=== PATIENT | female | born 1940 | race Caucasian/White ===

== ENCOUNTER 2017-01-31 10:22 | Emergency (ER) | payer MEDICARE, OTHER ==
--- NOTE | 2017-01-31 11:07 | EDM.PDOC ---
ED HPI GENERAL MEDICAL PROBLEM - General Chief Complaint: General Stated Complaint: FALL,LIGHTHEADED Time Seen by Provider: 01/31/17 11:00 Source of Information: Reports: Patient, Family History Limitations: Reports: No limitations - History of Present Illness INITIAL COMMENTS - FREE TEXT/NARRATIVE: pt has a history of a irregular heart rhythm. She is on coumadin and that was last checkd the end of dec. Onset: sudden Duration: Hour(s): Location: Reports: other (pt had an episode of marked weakness. ) Associated Symptoms: Reports: syncope, other (pt got upp and was slightly dizzy. She sat on the tolet and when she went to get up she felt weak all over and she passd out briefly. ) Headache Pain Score (Numeric/FACES): 1 - Related Data Allergies Allergy/AdvReac Type Severity Reaction Status Date / Time glucosamine Allergy Hives Verified 11/22/13 12:15 Sulfa (Sulfonamide Allergy Hives Verified 11/22/13 12:15 Antibiotics) terbinafine HCl Allergy Hives Verified 11/22/13 12:15 [From Lamisil] nickel Allergy Cannot Uncoded 10/22/15 09:32 Remember Home Meds: Home Meds Albuterol [Ventolin HFA] 2 puff INH Q4H PRN 11/22/13 [History] Aspirin [Ecotrin] 81 mg PO DAILY 11/22/13 [History] Estradiol [Estrace Vaginal] 2 gm VAG .MW 11/22/13 [History] Fish Oil/Todd-3 Fatty Acids [Fish Oil] 1 each PO DAILY 11/22/13 [History] Fluticasone Propionate [Flonase] 16 gm NS DAILY 11/22/13 [History] LORazepam [Ativan] 0.5 mg PO TID PRN 11/22/13 [History] Metoprolol Tartrate 25 mg PO BID 11/22/13 [History] Montelukast [Singulair] 10 mg PO BEDTIME 11/22/13 [History] Multivitamin with Minerals [Multiple Vitamin] 1 tab PO DAILY 11/22/13 [History] Omeprazole 20 mg PO DAILY 11/22/13 [History] Simvastatin [Zocor] 20 mg PO BEDTIME 11/22/13 [History] Solifenacin [Vesicare] 10 mg PO DAILY 11/22/13 [History] Warfarin Sliding Scale [Coumadin Sliding Scale] 5 mg PO .MWF 11/22/13 [History] traMADol [Ultram] 50 mg PO Q6H PRN 11/22/13 [History] ALPRAZolam [Xanax] 0.25 mg PO BEDTIME PRN 10/22/15 [History] Albuterol Sulfate [Proair Hfa] 2 puff PO Q4H PRN 10/22/15 [History] Citalopram Hydrobromide [Celexa] 10 mg PO DAILY 10/22/15 [History] Donepezil [Aricept] 10 mg PO BEDTIME 10/22/15 [History] Warfarin Sliding Scale [Coumadin Sliding Scale] 2.5 mg PO .STTS 10/22/15 [ History] Alendronate [Fosamax] 70 mg PO WEEKLY 01/31/17 [History] Cetirizine [ZyrTEC] 5 mg PO DAILY 01/31/17 [History] Diltiazem HCl [Diltiazem 12Hr ER] 60 mg PO BID 01/31/17 [History] Fluticasone/Salmeterol [Advair 250-50 Diskus] 2 puff INH Q4H PRN 01/31/17 [ History] Montelukast [Singulair] 10 mg PO DAILY 01/31/17 [History] Triamcinolone Acetonide [Kenalog 0.1% Crm] 1 appful TOP ASDIRECTED 01/31/17 [ History] Past Medical History HEENT History: Reports: Hard of hearing Cardiovascular History: Reports: Afib, High cholesterol, Hypertension Respiratory History: Reports: Asthma, Bronchitis, recurrent Gastrointestinal History: Reports: GERD 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: Musculoskeletal History: Reports: Fracture, Other (see below) Other Musculoskeletal History: ankle broken twice Neurological History: Reports: CVA Psychiatric History: Reports: Anxiety, Depression Endocrine/Metabolic History: Reports: Diabetes, type II, Obesity/BMI 30+ - Infectious Disease History Infectious Disease History: Reports: Chicken pox - Past Surgical History HEENT Surgical History: Reports: Cataract surgery Respiratory Surgical History: Reports: None GI Surgical History: Reports: Colonoscopy Female Surgical History: Reports: section, Other (see below) Other Female Surgeries/Procedures: bladder repair Endocrine Surgical History: Reports: None Neurological Surgical History: Reports: None Musculoskeletal Surgical History: Reports: Arthroscopic knee Social & Family History - Tobacco Use Smoking Status *Q: Never Smoker Second Hand Smoke Exposure: No - Caffeine Use Caffeine Use: Reports: Coffee - Alcohol Use Days Per Week of Alcohol Use: 0 - Recreational Drug Use Recreational Drug Use: No ED ROS GENERAL - Review of Systems Review Of Systems: See Below Constitutional: Reports: no symptoms HEENT: Reports: No symptoms Respiratory: Reports: No Symptoms Cardiovascular: Reports: Syncope Endocrine: Reports: no symptoms GI/Abdominal: Reports: No symptoms : Reports: no symptoms Musculoskeletal: Reports: no symptoms Skin: Reports: no symptoms ED EXAM, GENERAL - Physical Exam Exam: See Below Free Text/Narrative:: pt arrived after she had a syncopl episode early Tuesday am and she ended up falling to the floor. Exam Limited By: No limitations General Appearance: alert, no apparent distress, anxious Ears: normal TMs Nose: normal inspection Throat/Mouth: Normal inspection Head: other ( slight bruisin over the rt eye. ) Neck: normal inspection Respiratory/Chest: no respiratory distress Cardiovascular: irregularly irregular, other ( rates were in the 60,s and seventys. ) GI/Abdominal: soft, non tender Rectal (Female) Exam: Deferred Back Exam: normal inspection Extremities: normal inspection Neurological: alert, oriented, normal cognition Psychiatric: normal affect Course - Vital Signs Last Recorded V/S: Last Vital Signs Temp 35.9 C 01/31/17 10:55 Pulse 54 L 01/31/17 11:15 Resp 16 01/31/17 11:15 BP 105/64 01/31/17 11:15 Pulse Ox 98 01/31/17 11:15 Orthostatic Blood Pressure [ 147/64 Standing] Orthostatic Blood Pressure [ 128/86 Sitting] Orthostatic Blood Pressure [ 133/76 Supine] - Orders/Labs/Meds Orders: Active Orders 24 hr Category Date Time Status Cardiac Monitoring [RC] .As Directed Care 01/31/17 11:00 Active Orthostatic Vital Signs [RC] ASDIRECTED Care 01/31/17 10:44 Active Labs: Laboratory Tests 01/31/17 01/31/17 01/31/17 Range/Units 10:55 10:55 10:55 WBC 6.1 (4.5-11.0) K/uL RBC 5.08 (3.30-5.50) M/uL Hgb 15.2 H (12.0-15.0) g/dL Hct 46.6 (36.0-48.0) % MCV 92 (80-98) fL MCH 30 (27-31) pg MCHC 33 (32-36) % Plt Count 286 (150-400) K/uL Neut % (Auto) 51 (36-66) % Lymph % (Auto) 31 (24-44) % [place] % (Auto) 12 H (2-6) % Eos % (Auto) 5 H (2-4) % Baso % (Auto) 1 (0-1) % PT 24.1 H (9.5-12.0) sec INR 2.22 H (0.80-1.20) Sodium 138 L (140-148) mmol/L Potassium 5.3 H (3.6-5.2) mmol/L Chloride 102 (100-108) mmol/L Carbon Dioxide 29 (21-32) mmol/L Anion Gap 12.3 (5.0-14.0) mmol/L BUN 16 (7-18) mg/dL Creatinine 0.9 (0.6-1.0) mg/dL Est Cr Clr Drug Dosing 38.79 mL/min Estimated GFR (MDRD) > 60 (>60) Glucose 128 H (74-106) mg/dL Calcium 9.5 (8.5-10.1) mg/dL Total Bilirubin 0.6 (0.2-1.0) mg/dL AST 23 (15-37) U/L ALT 32 (12-78) U/L Alkaline Phosphatase 76 (46-116) U/L Total Protein 7.2 (6.4-8.2) g/dL Albumin 3.8 (3.4-5.0) g/dL Globulin 3.4 (2.3-3.5) g/dL Albumin/Globulin Ratio 1.1 L (1.2-2.2) Urine Color Urine Appearance Urine pH (4.5-8.0) Ur Specific [place] (1.008-1.030) Urine Protein (NEGATIVE) mg/dL Urine Glucose (UA) (NEGATIVE) mg/dL Urine Ketones (NEGATIVE) mg/dL Urine Occult Blood (NEGATIVE) Urine Nitrite (NEGATIVE) Urine Bilirubin (NEGATIVE) Urine Urobilinogen (NORMAL) mg/dL Ur Leukocyte Esterase (NEGATIVE) Urine RBC (0-5) Urine WBC (0-5) Ur Epithelial Cells Amorphous Sediment Urine Bacteria Urine Mucus 01/31/17 Range/Units 12:40 WBC (4.5-11.0) K/uL RBC (3.30-5.50) M/uL Hgb (12.0-15.0) g/dL Hct (36.0-48.0) % MCV (80-98) fL MCH (27-31) pg MCHC (32-36) % Plt Count (150-400) K/uL Neut % (Auto) (36-66) % Lymph % (Auto) (24-44) % [place] % (Auto) (2-6) % Eos % (Auto) (2-4) % Baso % (Auto) (0-1) % PT (9.5-12.0) sec INR (0.80-1.20) Sodium (140-148) mmol/L Potassium (3.6-5.2) mmol/L Chloride (100-108) mmol/L Carbon Dioxide (21-32) mmol/L Anion Gap (5.0-14.0) mmol/L BUN (7-18) mg/dL Creatinine (0.6-1.0) mg/dL Est Cr Clr Drug Dosing mL/min Estimated GFR (MDRD) (>60) Glucose (74-106) mg/dL Calcium (8.5-10.1) mg/dL Total Bilirubin (0.2-1.0) mg/dL AST (15-37) U/L ALT (12-78) U/L Alkaline Phosphatase (46-116) U/L Total Protein (6.4-8.2) g/dL Albumin (3.4-5.0) g/dL Globulin (2.3-3.5) g/dL Albumin/Globulin Ratio (1.2-2.2) Urine Color Yellow Urine Appearance Slightly cloudy Urine pH 7.0 (4.5-8.0) Ur Specific [place] 1.010 (1.008-1.030) Urine Protein Negative (NEGATIVE) mg/dL Urine Glucose (UA) Normal (NEGATIVE) mg/dL Urine Ketones Negative (NEGATIVE) mg/dL Urine Occult Blood Negative (NEGATIVE) Urine Nitrite Negative (NEGATIVE) Urine Bilirubin Negative (NEGATIVE) Urine Urobilinogen Normal (NORMAL) mg/dL Ur Leukocyte Esterase Negative (NEGATIVE) Urine RBC Not seen (0-5) Urine WBC Not seen (0-5) Ur Epithelial Cells Moderate Amorphous Sediment Moderate Urine Bacteria Rare Urine Mucus Not seen - Re-Assessments/Exams Free Text/Narrative Re-Assessment/Exam: 01/31/17 12:56 pt had an ekg which did not show acute fings, She is in atrial fib which is chronic for her. Her lab work looks good. She had a cat scan of the head because she s hit her head and she is on coumadin. Her bp was on the low side. Departure - Departure Time of Disposition: 12:58 Disposition: Home, Self-Care 01 Condition: fair Clinical Impression: Postural hypotension, Atrial fibrillation, chronic Forms: ED Department Discharge Care Plan Goals: decrease metoprol to 25 mg daily instead of twice daily, Try to get up slower and sit at the edge of the bed before standing up. Appt with Melanie Ran in 4-5 days to recheck bp and see if she has hd any more near Syncope. - My Orders Last 24 Hours: My Active Orders 01/31/17 10:44 Orthostatic Vital Signs [RC] ASDIRECTED 01/31/17 11:00 Cardiac Monitoring [RC] .As Directed - Assessment/Plan Last 24 Hours: My Active Orders 01/31/17 10:44 Orthostatic Vital Signs [RC] ASDIRECTED 01/31/17 11:00 Cardiac Monitoring [RC] .As Directed
[2017-01-31 11:32] VITALS: BP 105/64
--- NOTE | 2017-01-31 11:49 | CT ---
Head wo Cont INDICATION: Patient fell to floor after passing out. Total DLP 779. COMPARISON: CT head 05/06/2015. FINDINGS: No acute intracranial hemorrhage, mass, or edema. Generalized cerebral and cerebellar volu me loss. Mild low attenuation in the periventricular and subcortical deep white matter is nonspecifi c, but most compatible with chronic small-vessel ischemic changes. Stable chronic white matter infar ct posterior left frontal lobe. Fluid and mucosal thickening in bilateral maxillary sinuses. Remaind er unremarkable. IMPRESSION: No acute intracranial abnormality. Sinusitis.
== END 2017-01-31 13:47 | disposition home or self-care (01) ==
LOC: JP.ED 10:22
DX: I95.1 Orthostatic hypotension (principal); I48.2 Chronic atrial fibrillation; I10 Essential (primary) hypertension; E78.00 Pure hypercholesterolemia, unspecified; J45.909 Unspecified asthma, uncomplicated; K21.9 Gastro-esophageal reflux disease without esophagitis; E11.9 Type 2 diabetes mellitus without complications; F41.9 Anxiety disorder, unspecified; F32.9 Major depressive disorder, single episode, unspecified; E66.9 Obesity, unspecified; Z68.32 Body mass index [BMI] 32.0-32.9, adult; Z88.2 Allergy status to sulfonamides; Z88.8 Allergy status to other drugs, medicaments and biological substances; Z91.048 Other nonmedicinal substance allergy status; Z79.82 Long term (current) use of aspirin; Z79.01 Long term (current) use of anticoagulants; Z79.899 Other long term (current) drug therapy; Z98.49 Cataract extraction status, unspecified eye; Z98.890 Other specified postprocedural states
CPT/HCPCS: 36415; 70450; 70450-26; 80053; 81001; 85025; 85610; 93010; 99283; 99284-25

== ENCOUNTER → 2019-03-21 | Outpatient (CLI) | payer MEDICARE, OTHER ==
--- NOTE | 2019-03-22 09:53 | CRLMY ---
INDICATION: Asymptomatic 78 year Female, Bilateral Screening Mammogram been obtained using full-field digital technique. These mammographic images were interpreted with the benefit of computer-aided detection. COMPARISON FILM: 12/01/17, 11/11/16, 10/28/15, 05/03/14. FINDINGS: The breast tissue is almost entirely fat. There are no masses or calcifications that are suspicious for malignancy. IMPRESSION: There is no radiographic evidence for malignancy. ASSESSMENT: BI-RADS Category 2: Benign RECOMMENDATION: Routine screening mammogram in 1 year. A lay language report of this examination will be provided to the patient. Breast Tomosynthesis was used in this interpretation. [email or web address] Dictated by: Mina Dumont MD @ 03/22/2019 09:52:43 (Electronically Signed)
== END ==
LOC: JP.MAM 14:02
PROVIDERS: ATTEND Physician Assistant
DX: Z12.31 Encounter for screening mammogram for malignant neoplasm of breast (principal)
CPT/HCPCS: 77063; 77067

== ENCOUNTER 2021-06-13 13:30 | Emergency (ER) | payer MEDICARE, OTHER ==
--- NOTE | 2021-06-13 14:14 | EDM.PDOC ---
ED HPI GENERAL MEDICAL PROBLEM - General Chief Complaint: Lower Extremity Injury/Pain Stated Complaint: R HIP PAIN Time Seen by Provider: 06/13/21 14:13 Source of Information: Reports: Patient, RN History Limitations: Reports: Other (Hard of hearing) - History of Present Illness INITIAL COMMENTS - FREE TEXT/NARRATIVE: Sera is a very active 80 year old female whom was brought to the ER by her after a fall this morning around 10 am. Sera was in the garage getting corn when she lost her balance and fell striking her head and landing on her right hip resulting in severe right hip pain. Patient is on Coumadin. Patient has significant difficulty ambulating due to pain. Sera has not pain with movement of bilateral arm, wrists or shoulders. Sera is diabetic but stopped Metformin due to severe Gi distress, hoping to get a different mediation to help control blood sugars. She has been watching her diet closely. - Related Data Allergies Allergy/AdvReac Type Severity Reaction Status Date / Time glucosamine Allergy Hives Verified 06/13/21 14:56 Sulfa (Sulfonamide Allergy Hives Verified 06/13/21 14:56 Antibiotics) terbinafine HCl Allergy Hives Verified 06/13/21 14:56 [From Lamisil] nickel Allergy Cannot Uncoded 06/13/21 14:56 Remember Home Meds: Home Meds Albuterol [Ventolin HFA] 2 puff INH Q4H PRN 11/22/13 [History] Aspirin [Ecotrin] 81 mg PO DAILY 11/22/13 [History] Fish Oil/Burnside-3 Fatty Acids [Fish Oil] 1 each PO DAILY 11/22/13 [History] LORazepam [Ativan] 0.5 mg PO TID PRN 11/22/13 [History] Metoprolol Tartrate 25 mg PO BID 11/22/13 [History] Montelukast [Singulair] 10 mg PO BEDTIME 11/22/13 [History] Simvastatin [Zocor] 20 mg PO BEDTIME 11/22/13 [History] Warfarin Sliding Scale [Coumadin Sliding Scale] 5 mg PO .MWF 11/22/13 [History] ALPRAZolam [Xanax] 0.25 mg PO BEDTIME PRN 10/22/15 [History] Albuterol Sulfate [Proair Hfa] 2 puff PO Q4H PRN 10/22/15 [History] Citalopram Hydrobromide [Celexa] 10 mg PO DAILY 10/22/15 [History] Donepezil [Aricept] 10 mg PO BEDTIME 10/22/15 [History] Warfarin Sliding Scale [Coumadin Sliding Scale] 2.5 mg PO .STTS 10/22/15 [History] Alendronate [Fosamax] 70 mg PO WEEKLY 01/31/17 [History] Cetirizine [ZyrTEC] 5 mg PO DAILY 01/31/17 [History] Fluticasone Propion/Salmeterol [Advair 250-50 Diskus] 2 puff INH Q4H PRN 01/31/17 [History] Triamcinolone Acetonide [Kenalog 0.1% Crm] 1 appful TOP ASDIRECTED 01/31/17 [History] dilTIAZem HCL [Diltiazem 12Hr ER] 60 mg PO BID 01/31/17 [History] Acetaminophen/HYDROcodone [[place]burn 325-5 MG] 1 tab PO Q6H PRN 2 Days #10 tab 06/13/21 [Rx] Past Medical History HEENT History: Reports: Hard of Hearing Cardiovascular History: Reports: Afib, High Cholesterol, Hypertension Respiratory History: Reports: Asthma, Bronchitis, Recurrent Gastrointestinal History: Reports: 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: Musculoskeletal History: Reports: Fracture, Other (See Below) Other Musculoskeletal History: ankle broken twice Neurological History: Reports: CVA Psychiatric History: Reports: Anxiety, Depression Endocrine/Metabolic History: Reports: Diabetes, Type II, Obesity/BMI 30+ - Infectious Disease History Infectious Disease History: Reports: Chicken Pox - Past Surgical History HEENT Surgical History: Reports: Cataract Surgery Female Surgical History: Reports: Section, Other (See Below) Musculoskeletal Surgical History: Reports: Arthroscopic Knee Social & Family History - Caffeine Use Caffeine Use: Reports: Coffee Review of Systems - Review of Systems Review Of Systems: Comprehensive ROS is negative, except as noted in HPI. ED EXAM, GENERAL - Physical Exam Exam: See Below Exam Limited By: Other (Hard of hearing) General Appearance: Alert, WD/WN, Moderate Distress (due to hip pain) Eye Exam: Bilateral Eye: Normal Inspection Ears: Normal External Exam Nose: Normal Inspection Throat/Mouth: Normal Inspection, Normal Voice, No Airway Compromise Head: Other (psoterior contusion hematoma noted) Neck: Normal Inspection, Non-Tender, Limited Range of Motion Respiratory/Chest: No Respiratory Distress, Lungs Clear, Normal Breath Sounds Cardiovascular: Normal Peripheral Pulses GI/Abdominal: Normal Bowel Sounds, Soft (Female) Exam: Deferred Rectal (Female) Exam: Deferred Back Exam: Normal Inspection Extremities: Leg Pain (Right hip posterior buttocks pain) Neurological: Alert, Oriented, CN II-XII Intact, Normal Cognition, Abnormal Gait Psychiatric: Normal Affect, Normal Mood Course - Vital Signs Last Recorded V/S: Last Vital Signs Temp 36.3 C 06/13/21 14:24 Pulse 79 06/13/21 15:41 Resp 18 06/13/21 14:24 BP 139/66 06/13/21 15:41 Pulse Ox 96 06/13/21 15:41 - Orders/Labs/Meds Orders: Active Orders 24 hr Category Date Time Status Ambulate [RC] PER UNIT ROUTINE Care 06/13/21 16:05 Active Peripheral IV Care [RC] . DIRECTED Care 06/13/21 14:30 Active Hip Min 2V or 3V w Pelvis Rt [CR] Stat Exams 06/13/21 14:29 Taken Sodium Chloride 0.9% [Saline Flush] Med 06/13/21 14:29 Active 10 ml FLUSH ASDIRECTED PRN Peripheral IV Insertion Adult [OM.PC] Urgent Oth 06/13/21 14:29 Ordered Medication Orders Sodium Chloride (Sodium Chloride 0.9% 10 Ml Syringe) 10 ml FLUSH ASDIRECTED PRN PRN Reason: Keep Vein Open Last Admin: 06/13/21 14:44 Dose: 10 ml Documented by: MEHDI Labs: Laboratory Tests 06/13/21 06/13/21 06/13/21 Range/Units 14:28 14:28 14:28 WBC 5.9 (4.5-11.0) K/uL RBC 3.77 (3.30-5.50) M/uL Hgb 10.6 L D (12.0-15.0) g/dL Hct 33.8 L (36.0-48.0) % MCV 90 (80-98) fL MCH 28 (27-31) pg MCHC 31 L (32-36) % Plt Count 347 (150-400) K/uL Neut % (Auto) 65.4 (36-66) % Lymph % (Auto) 20.4 L (24-44) % [place] % (Auto) 9.5 H (2-6) % Eos % (Auto) 4.2 H (2-4) % Baso % (Auto) 0.5 (0-1) % PT 28.6 H (9.5-12.0) sec INR 2.67 H (0.80-1.20) Sodium 137 L (140-148) mmol/L Potassium 4.4 (3.6-5.2) mmol/L Chloride 101 (100-108) mmol/L Carbon Dioxide 28 (21-32) mmol/L Anion Gap 12.4 (5.0-14.0) mmol/L BUN 11 (7-18) mg/dL Creatinine 0.8 (0.6-1.0) mg/dL Est Cr Clr Drug Dosing 40.96 mL/min Estimated GFR (MDRD) > 60 (>60) Glucose 137 H (74-106) mg/dL Calcium 9.1 (8.5-10.1) mg/dL Total Bilirubin 0.3 (0.2-1.0) mg/dL AST 24 (15-37) U/L ALT 24 (12-78) U/L Alkaline Phosphatase 58 (46-116) U/L Total Protein 6.2 L (6.4-8.2) g/dL Albumin 3.3 L (3.4-5.0) g/dL Globulin 2.9 (2.3-3.5) g/dL Albumin/Globulin Ratio 1.1 L (1.2-2.2) Meds: Medications Generic Name Dose Route Start Last Admin Trade Name Freq PRN Reason Stop Dose Admin Sodium Chloride 10 ml 06/13/21 14:29 06/13/21 14:44 Sodium Chloride 0.9% 10 Ml Syringe FLUSH 10 ml ASDIRECTED PRN Administration Keep Vein Open Discontinued Medications Generic Name Dose Route Start Last Admin Trade Name Freq PRN Reason Stop Dose Admin Hydrocodone Bitart/Acetaminophen 1 tab 06/13/21 16:04 06/13/21 16:28 Acetaminophen/Hydrocodone 325-5 Mg Tab PO 06/13/21 16:05 1 tab ONETIME ONE Administration Fentanyl 50 mcg 06/13/21 14:28 06/13/21 14:43 Fentanyl 100 Mcg/2 Ml Sdv IVPUSH 06/13/21 14:29 50 mcg ONETIME ONE Administration Metoclopramide HCl 5 mg 06/13/21 14:28 06/13/21 14:43 Metoclopramide 10 Mg/2 Ml Sdv IV 06/13/21 14:29 5 mg ONETIME ONE Administration - Re-Assessments/Exams Free Text/Narrative Re-Assessment/Exam: Right hip and pelvis x ray negative per my reading and ER MD. CT head and cervical spine without acute concerning findings. Blood test normal with therapeutic Coumadin level. Pain pill given to patient and allowed ambulation with more stable walker, which went will and would like for home use to prevent injury at this time. 06/13/21 17:18 Departure - Departure Time of Disposition: 17:20 Disposition: Home, Self-Care 01 Clinical Impression: Fall, Hip pain, Head injury, Compression fracture of thoracic vertebra, Cervical arthritis - Discharge Information Prescriptions: Acetaminophen/HYDROcodone [[place] 325-5 MG] 1 tab PO Q6H PRN 2 Days #10 tab PRN Reason: Pain (Severe 7-10) Referrals: Judie Tong PA [Primary Care Provider] - Forms: ED Department Discharge Additional Instructions: 1. Continue Ice 15-20 mintues as needed for pain on head or buttocks. 2. CT Head no head bleed noted. Continued Coumadin as directed. 3. Tylenol 500-650mg every 6 hours for mild to moderate pain Max 3000mg recommended per 24 hours. 4. Add [place] (5/325) 1/2 to 1 tablet every 6 hours as needed for moderate to severe pain. 5. Use walker for balance to prevent further injury or repeat fall due to hip pain. 6. Call clinic on Tuesday for recheck this week to ensure right hip pain is improving. Sepsis Event Note (ED) - Focused Exam Vital Signs: Vital Signs Temp Pulse Resp BP Pulse Ox 06/13/21 15:41 79 139/66 96 06/13/21 14:24 36.3 C 75 18 140/72 99 06/13/21 14:07 36.3 C 75 18 140/72 99 - My Orders Last 24 Hours: My Active Orders 06/13/21 14:29 Hip Min 2V or 3V w Pelvis Rt [CR] Stat Sodium Chloride 0.9% [Saline Flush] 10 ml FLUSH ASDIRECTED PRN Peripheral IV Insertion Adult [OM.PC] Urgent 06/13/21 14:30 Peripheral IV Care [RC] . DIRECTED 06/13/21 16:05 Ambulate [RC] PER UNIT ROUTINE - Assessment/Plan Last 24 Hours: My Active Orders 06/13/21 14:29 Hip Min 2V or 3V w Pelvis Rt [CR] Stat Sodium Chloride 0.9% [Saline Flush] 10 ml FLUSH ASDIRECTED PRN Peripheral IV Insertion Adult [OM.PC] Urgent 06/13/21 14:30 Peripheral IV Care [RC] . DIRECTED 06/13/21 16:05 Ambulate [RC] PER UNIT ROUTINE
[2021-06-13] MEDS ORDERED: Metoclopramide 10 MG/2 ML SDV IV ONE (14:28)
[2021-06-13] MEDS ORDERED: fentaNYL 100 MCG/2 ML SDV IVPUSH ONE (14:28)
[2021-06-13] MEDS ORDERED: Sodium Chloride 0.9% 10 ML Syringe FLUSH PRN (14:29)
[2021-06-13 15:42] VITALS: BP 139/66; PULSE 79
[2021-06-13] MEDS ORDERED: Acetaminophen/HYDROcodone 325-5 MG Tab PO ONE (16:04)
--- NOTE | 2021-06-13 16:55 | CRLCT ---
For Patients: As a result of the Century Cures Act, medical imaging exams and procedure reports are released immediately into your electronic medical record. You may view this report before your referring provider. If you have questions, please contact your health care provider. INDICATION: Fall. Head injury. TECHNIQUE: CT of the head without contrast. Coronal and sagittal reformats are included. COMPARISON: Head CT from 04/02/2017. FINDINGS: No acute intracranial hemorrhage. No mass effect or midline shift. No hydrocephalus or extra-axial collections. Encephalomalacia involving the left insula and posterior lateral frontal lobe, compatible with chronic sequela of infarction. Moderate generalized parenchymal volume loss. Patchy hypoattenuation within the supratentorial white matter, typical for chronic microvascular ischemic changes. Vascular calcifications carotid siphons. No acute osseous abnormalities. Right mastoid effusion without air cell coalescence. Scattered paranasal sinus mucosal thickening. Small right parietal scalp contusion. IMPRESSION: 1. No acute intracranial abnormalities, including no evidence of acute intracranial hemorrhage. 2. Chronic infarct left posterior frontal operculum/insula. 3. No calvarial fractures. Small right parietal scalp contusion. Please note that all CT scans at this facility use dose modulation, iterative reconstruction, and/or weight-based dosing when appropriate to reduce radiation dose to as low as reasonably achievable. Dictated by Timmy Moffett MD @ 06/13/2021 4:54:[address] Timmy Moffett @ Jun 13 2021 4:54PM
--- NOTE | 2021-06-13 17:00 | CRLCT ---
For Patients: As a result of the Century Cures Act, medical imaging exams and procedure reports are released immediately into your electronic medical record. You may view this report before your referring provider. If you have questions, please contact your health care provider. INDICATION: Fall. Head injury. TECHNIQUE: CT of the cervical spine without contrast. Coronal and sagittal reformats are included. COMPARISON: None. FINDINGS: Mild superior endplate deformities at T1, T2 and T3 without substantial vertebral body height loss, technically indeterminate in age but more likely chronic. Craniocervical junction alignment is maintained. Multilevel cervical disc degeneration most advanced at the C5-6 and C6-7 levels. Mild degenerative anterolisthesis at C3-4 and C4-5. Trace anterolisthesis at C7-T1. No high-grade bony spinal canal or neural foraminal stenosis at any cervical thoracic level. Atherosclerotic changes carotid bulbs bilaterally. The visualized pulmonary apices are clear. IMPRESSION: 1. No definite acute fractures. Age-indeterminate but more likely chronic superior endplate deformities at T1, T2 and T3. 2. Multilevel cervical spondylosis. Please note that all CT scans at this facility use dose modulation, iterative reconstruction, and/or weight-based dosing when appropriate to reduce radiation dose to as low as reasonably achievable. Dictated by Timmy Moffett MD @ 06/13/2021 4:58:[address] Timmy Moffett @ Jun 13 2021 4:58PM
--- NOTE | 2021-06-15 09:47 | CR ---
Hip Min 2V or 3V w Pelvis Rt CLINICAL HISTORY: Fall, pain FINDINGS: No fracture or dislocation is identified. There is some mild joint space narrowing bilaterally. IMPRESSION: Mild degenerative change No fracture
== END 2021-06-13 17:55 | disposition home or self-care (01) ==
LOC: JP.ED 13:30
DX: S22.009A Unspecified fracture of unspecified thoracic vertebra, initial encounter for closed fracture (principal); S00.83XA Contusion of other part of head, initial encounter; M47.812 Spondylosis without myelopathy or radiculopathy, cervical region; M25.551 Pain in right hip; I48.91 Unspecified atrial fibrillation; E78.00 Pure hypercholesterolemia, unspecified; I10 Essential (primary) hypertension; J45.909 Unspecified asthma, uncomplicated; E11.9 Type 2 diabetes mellitus without complications; E66.9 Obesity, unspecified; Z68.27 Body mass index [BMI] 27.0-27.9, adult; Z88.8 Allergy status to other drugs, medicaments and biological substances; Z88.2 Allergy status to sulfonamides; Z91.048 Other nonmedicinal substance allergy status; Z79.82 Long term (current) use of aspirin; Z79.899 Other long term (current) drug therapy; W18.30XA Fall on same level, unspecified, initial encounter; Y92.59 Other trade areas as the place of occurrence of the external cause
CPT/HCPCS: 36415; 70450; 72125; 73502; 80053; 85025; 85610; 96374; 96375; 99284; A9270; J2765; J3010

== ENCOUNTER 2022-04-19 10:43 | Emergency (ER) | payer MEDICARE, OTHER ==
[2022-04-19 11:57] VITALS: BP 161/73; PULSE 74
== END 2022-04-19 14:36 | disposition home or self-care (01) ==
LOC: JP.ED 10:43
DX: M25.551 Pain in right hip (principal); I48.91 Unspecified atrial fibrillation; E78.00 Pure hypercholesterolemia, unspecified; I10 Essential (primary) hypertension; J45.909 Unspecified asthma, uncomplicated; E11.9 Type 2 diabetes mellitus without complications; E66.9 Obesity, unspecified; Z68.27 Body mass index [BMI] 27.0-27.9, adult; Z86.73 Personal history of transient ischemic attack (TIA), and cerebral infarction without residual deficits; Z88.2 Allergy status to sulfonamides; Z88.1 Allergy status to other antibiotic agents; Z91.048 Other nonmedicinal substance allergy status; Z79.899 Other long term (current) drug therapy; Z79.82 Long term (current) use of aspirin; Z79.01 Long term (current) use of anticoagulants
CPT/HCPCS: 73502-26-LT; 73502-LT; 735622650; 73562-50; 99282; 99283-25

== ENCOUNTER 2022-11-18 12:20 | Emergency (ER) | payer MEDICARE, OTHER, MEDICAID ==
[2022-11-18 12:39] VITALS: PULSE 64
[2022-11-18 14:32] VITALS: BP 143/87
== END 2022-11-18 15:47 | disposition home or self-care (01) ==
LOC: JP.ED 12:20
DX: S40.012A Contusion of left shoulder, initial encounter (principal); E78.00 Pure hypercholesterolemia, unspecified; I10 Essential (primary) hypertension; E11.9 Type 2 diabetes mellitus without complications; E66.9 Obesity, unspecified; Z68.27 Body mass index [BMI] 27.0-27.9, adult; Z88.2 Allergy status to sulfonamides; Z91.048 Other nonmedicinal substance allergy status; Z79.899 Other long term (current) drug therapy; Z79.82 Long term (current) use of aspirin; Z79.01 Long term (current) use of anticoagulants; W22.8XXA Striking against or struck by other objects, initial encounter
CPT/HCPCS: 36415; 73030-LT; 85610; 99281; 99283

== ENCOUNTER 2022-12-07 10:25 | Emergency (ER) | payer MEDICARE, OTHER, MEDICAID ==
[2022-12-07] MEDS ORDERED: fentaNYL 100 MCG/2 ML SDV IVPUSH ONE ×2 (11:05→12:08)
[2022-12-07 12:28] VITALS: BP 135/81; PULSE 88
== END 2022-12-07 12:57 ==
LOC: JP.ED 10:25
DX: S72.142A Displaced intertrochanteric fracture of left femur, initial encounter for closed fracture (principal); I48.91 Unspecified atrial fibrillation; I10 Essential (primary) hypertension; F41.9 Anxiety disorder, unspecified; F32.A Depression, unspecified; K21.9 Gastro-esophageal reflux disease without esophagitis; Z79.899 Other long term (current) drug therapy; Z88.2 Allergy status to sulfonamides; Z88.8 Allergy status to other drugs, medicaments and biological substances; W19.XXXA Unspecified fall, initial encounter
CPT/HCPCS: 36415; 73502-26-LT; 73502-LT; 80048; 85025; 85610; 96374; 96376; 99284; 99285-25; J3010

== ENCOUNTER 2023-12-12 04:51 | Emergency (ER) | payer MEDICARE, OTHER ==
[2023-12-12] MEDS ORDERED: Bacitracin Oint 1 GM U/D Packet TOP ONE (05:11)
[2023-12-12 05:33] VITALS: BP 132/69; PULSE 80
[2023-12-12] MEDS ORDERED: Acetaminophen 325 MG Tab PO ONE (07:38)
== END 2023-12-12 08:49 ==
LOC: JP.ED 04:51
DX: S00.03XA Contusion of scalp, initial encounter (principal); S81.811A Laceration without foreign body, right lower leg, initial encounter; S41.111A Laceration without foreign body of right upper arm, initial encounter; I10 Essential (primary) hypertension; E78.00 Pure hypercholesterolemia, unspecified; J45.909 Unspecified asthma, uncomplicated; E11.9 Type 2 diabetes mellitus without complications; K21.9 Gastro-esophageal reflux disease without esophagitis; Z88.8 Allergy status to other drugs, medicaments and biological substances; Z91.048 Other nonmedicinal substance allergy status; Z88.2 Allergy status to sulfonamides; Z88.1 Allergy status to other antibiotic agents; Z79.82 Long term (current) use of aspirin; Z79.01 Long term (current) use of anticoagulants; Z79.4 Long term (current) use of insulin; Z79.899 Other long term (current) drug therapy; W22.8XXA Striking against or struck by other objects, initial encounter
CPT/HCPCS: 70450; 99283; 99284; A9270-GY

== ENCOUNTER 2023-12-17 12:47 | Emergency (ER) | payer MEDICARE, OTHER ==
[2023-12-17 13:16] VITALS: BP 136/75; PULSE 70
[2023-12-17 13:52] LABS: BASOPHILS ABSOLUTE AUTO 0.04 K/uL (0.00-0.10); BASOPHILS PERCENT AUTO 0.6 % (0.1-1.3); EOSINOPHILS ABSOLUTE AUTO 0.25 K/uL (0.00-0.40); EOSINOPHILS PERCENT AUTO 3.7 % (0.0-5.4); HEMATOCRIT 36.9 % (34.3-46.0); HEMOGLOBIN 11.9 g/dL (11.2-15.5); IMMATURE GRAN PERCENT AUTO 0.3 % (0.0-0.7); LYMPHOCYTES ABSOLUTE AUTO 1.55 K/uL (0.8-3.3); LYMPHOCYTES PERCENT AUTO 22.9 % (11.4-47.7); MEAN CORPUSCULAR HEMOGLOBIN 29.8 pg (31.6-35.5); MEAN CORPUSCULAR HGB CONC 32.2 g/dL (31.6-35.5); MEAN CORPUSCULAR VOLUME 92.3 fL (81.4-99.0); MONOCYTES ABSOLUTE AUTO 0.75 K/uL (0.20-0.90); MONOCYTES PERCENT AUTO 11.1 % (3.3-12.6); NEUTROPHILS ABSOLUTE AUTO 4.15 K/uL (1.0-7.6); NEUTROPHILS PERCENT AUTO 61.4 % (40.0-78.1); PLATELET COUNT,PLT 297 K/uL (130-375); WHITE BLOOD CELL COUNT,WBC 6.8 K/uL (3.2-11.0)
[2023-12-17 13:54] LABS: IMMATURE GRAN ABSOLUTE AUTO 0.02 K/uL (0.00-0.23)
[2023-12-17 14:07] LABS: CALCIUM 9.2 mg/dL (8.5-10.1); CREATININE 0.9 mg/dL (0.6-1.0); EST CRCL DRUG DOSING (CG) 34.62 mL/min; POTASSIUM,K 4.5 mmol/L (3.6-5.2)
[2023-12-17 14:08] LABS: ANION GAP 9.5 mmol/L (5.0-14.0)
== END 2023-12-17 15:11 | disposition home or self-care (01) ==
LOC: JP.ED 12:47
DX: L03.113 Cellulitis of right upper limb (principal); I10 Essential (primary) hypertension; E78.00 Pure hypercholesterolemia, unspecified; J44.9 Chronic obstructive pulmonary disease, unspecified; E11.9 Type 2 diabetes mellitus without complications; Z79.4 Long term (current) use of insulin; Z79.82 Long term (current) use of aspirin; Z79.01 Long term (current) use of anticoagulants; Z79.84 Long term (current) use of oral hypoglycemic drugs; Z79.899 Other long term (current) drug therapy; Z88.2 Allergy status to sulfonamides; Z91.048 Other nonmedicinal substance allergy status; Z88.1 Allergy status to other antibiotic agents; Z88.8 Allergy status to other drugs, medicaments and biological substances
CPT/HCPCS: 36415; 80048; 85025; 87070; 87088; 87186; 87205; 99283

== ENCOUNTER 2024-05-14 23:13 | Emergency (ER) | payer MEDICARE, OTHER ==
[2024-05-14 23:39] VITALS: BP 195/82; PULSE 68
[2024-05-14] MEDS: Diphtheria,Pertussis(Acell),Tetanus Vaccine 0.5 ML Syringe IM ONE (23:55)
[2024-05-14] MEDS: Bacitracin Oint 1 GM U/D Packet TOP ONE (23:55)
[2024-05-14] MEDS: Lidocaine 1% 10 ML MDV INJECT ONE (23:56)
[2024-05-15] MEDS: Acetaminophen/Codeine 300-30 MG Tab PO ONE (01:07)
== END 2024-05-15 01:28 | disposition home or self-care (01) ==
LOC: JP.ED 23:13
DX: S81.011A Laceration without foreign body, right knee, initial encounter (principal); E78.00 Pure hypercholesterolemia, unspecified; I10 Essential (primary) hypertension; E11.9 Type 2 diabetes mellitus without complications; Z88.2 Allergy status to sulfonamides; Z88.8 Allergy status to other drugs, medicaments and biological substances; Z91.048 Other nonmedicinal substance allergy status; Z79.82 Long term (current) use of aspirin; Z79.899 Other long term (current) drug therapy; Z79.01 Long term (current) use of anticoagulants; W18.39XA Other fall on same level, initial encounter
CPT/HCPCS: 12002; 73564; 90471; 90715; 99283; A9270; 12001

== ENCOUNTER 2024-05-21 13:53 | Inpatient (IN) | payer MEDICARE, OTHER ==
[2024-05-21] MEDS ORDERED: Naloxone 0.4 MG/ML SDV IVPUSH PRN (14:27)
[2024-05-21] MEDS: Ondansetron 4 MG/2 ML SDV IVPUSH ONE (14:41)
[2024-05-21] MEDS: HYDROmorphone 0.5 MG/0.5 ML Syringe IVPUSH ONE ×2 (14:41→18:04)
[2024-05-21 15:34] LABS: BASOPHILS PERCENT AUTO 0.9 % (0.1-1.3); EOSINOPHILS ABSOLUTE AUTO 0.24 K/uL (0.00-0.40); EOSINOPHILS PERCENT AUTO 2.2 % (0.0-5.4); HEMATOCRIT 40.7 % (34.3-46.0); HEMOGLOBIN 13.7 g/dL (11.2-15.5); IMMATURE GRAN ABSOLUTE AUTO 0.05 K/uL (0.00-0.23); IMMATURE GRAN PERCENT AUTO 0.4 % (0.0-0.7); LYMPHOCYTES ABSOLUTE AUTO 1.19 K/uL (0.8-3.3); LYMPHOCYTES PERCENT AUTO 10.7 % (11.4-47.7); MEAN CORPUSCULAR HEMOGLOBIN 29.5 pg (31.6-35.5); MEAN CORPUSCULAR HGB CONC 33.7 g/dL (31.6-35.5); MEAN CORPUSCULAR VOLUME 87.7 fL (81.4-99.0); MONOCYTES ABSOLUTE AUTO 0.92 K/uL (0.20-0.90); MONOCYTES PERCENT AUTO 8.3 % (3.3-12.6); NEUTROPHILS ABSOLUTE AUTO 8.64 K/uL (1.0-7.6); NEUTROPHILS PERCENT AUTO 77.5 % (40.0-78.1); PLATELET COUNT,PLT 349 K/uL (130-375); RED BLOOD CELL COUNT 4.64 M/uL (3.77-5.24); WHITE BLOOD CELL COUNT,WBC 11.1 K/uL (3.2-11.0)
[2024-05-21 15:48] LABS: CALCIUM 10.3 mg/dL (8.5-10.1); CREATININE 1.5 mg/dL (0.6-1.0); EST CRCL DRUG DOSING (CG) 20.77 mL/min
[2024-05-21] MEDS ORDERED: Ondansetron 4 MG/2 ML SDV IV PRN (19:29)
[2024-05-21] MEDS ORDERED: Ondansetron 4 MG Tab.DIS PO PRN (19:29)
[2024-05-21] MEDS ORDERED: 50% Dextrose in Water 50 ML Syringe IVPUSH PRN (19:29)
[2024-05-21] MEDS ORDERED: Magnesium Hydroxide 400 MG/5 ML Susp 30 ML Cup PO PRN (19:29)
[2024-05-21] MEDS ORDERED: Glucagon,Human Recombinant 1 MG Vial IM PRN (19:29)
[2024-05-21] MEDS ORDERED: Albuterol 0.083% 2.5 MG/3 ML Neb Soln NEB PRN (19:29)
[2024-05-21] MEDS ORDERED: Non-Formulary Medication 1 Each (Fluticasone Propion/Salmeterol [Advair 250-50 Diskus] 1 E INH PRN (19:29)
[2024-05-21] MEDS: oxyCODONE 5 MG Tab PO PRN (19:51)
[2024-05-21] MEDS: Sodium Chloride 0.9% 1,000 ML IV SCH (19:53)
[2024-05-21 19:58] LABS: INR 3.3; PROTHROMBIN TIME 32.4 sec (9.2-10.6)
[2024-05-21] MEDS: Gabapentin 100 MG Cap PO SCH (20:20)
[2024-05-21] MEDS: Acetaminophen 500 MG Tab PO SCH (20:20)
[2024-05-21] MEDS: Sennosides/Docusate Sodium 50-8.6 MG Tab PO PRN (20:21)
[2024-05-21] MEDS: ALPRAZolam 0.25 MG Tab PO PRN (20:21)
[2024-05-21] MEDS: Phytonadione 5 MG Tab PO ONE (20:21)
[2024-05-21] MEDS: HYDROmorphone 1 MG/ML Syringe IVPUSH PRN (20:49)
[2024-05-21] MEDS ORDERED: Non-Formulary Medication 1 Each (Olopatadine [Patanol 0.1% Ophth Soln] 5 ML Bottle) EYEBOTH SCH (21:00)
[2024-05-21] MEDS: Insulin Lispro 100 Unit/ML 3 ML KwikPen SUBCUT SCH (21:11)
[2024-05-21] MEDS: Betamethasone Dipropionate 0.05% Crm 15 GM Tube TOP SCH (22:44)
[2024-05-21] MEDS: Ketotifen 0.025% Ophth Soln 5 ML Bottle EYEBOTH SCH (22:45)
[2024-05-21] MEDS: Insulin Glargine,Human Rec. Analog 100 Units/ML 3 ML Pen SUBCUT SCH (23:10)
[2024-05-21] MEDS: Donepezil 10 MG Tab PO SCH (23:10)
[2024-05-21] MEDS: Pravastatin 20 MG Tab PO SCH (23:12)
[2024-05-21] MEDS: Metoprolol Tartrate 25 MG Tab PO SCH (23:54)
[2024-05-22 06:24] LABS: HEMATOCRIT 38.7 % (34.3-46.0); HEMOGLOBIN 12.8 g/dL (11.2-15.5); MEAN CORPUSCULAR HEMOGLOBIN 29.6 pg (31.6-35.5); MEAN CORPUSCULAR HGB CONC 33.1 g/dL (31.6-35.5); MEAN CORPUSCULAR VOLUME 89.4 fL (81.4-99.0); RED BLOOD CELL COUNT 4.33 M/uL (3.77-5.24); WHITE BLOOD CELL COUNT,WBC 8.7 K/uL (3.2-11.0)
[2024-05-22 06:43] LABS: INR 2.9; PROTHROMBIN TIME 28.1 sec (9.2-10.6)
[2024-05-22 06:59] LABS: ANION GAP 10.5 mmol/L (5.0-14.0); CALCIUM 9.7 mg/dL (8.5-10.1); CREATININE 1.4 mg/dL (0.6-1.0); EST CRCL DRUG DOSING (CG) 22.25 mL/min; POTASSIUM,K 4.5 mmol/L (3.6-5.2)
[2024-05-22] MEDS: Aspirin 81 MG Tab.EC PO SCH (09:59)
[2024-05-22] MEDS: Phytonadione 5 MG in Sodium Chloride 0.9% 50 ML IV ONE (09:59)
[2024-05-22] MEDS: Folic Acid 1 MG Tab PO SCH (09:59)
[2024-05-22] MEDS: Venlafaxine 75 MG Cap.ER PO SCH (09:59)
[2024-05-22] MEDS: Polyethylene Glycol 3350 Powder 17 GM Packet PO SCH (10:00)
[2024-05-22] MEDS: Multivitamins with Iron/Calcium/Folic Acid/Minerals Tab PO SCH (10:00)
[2024-05-22] MEDS: Insulin Glargine,Human Rec. Analog 100 Units/ML 3 ML Pen SUBCUT SCH ×2 (10:00→20:58)
[2024-05-22 16:57] LABS: INR 1.6; PROTHROMBIN TIME 15.7 sec (9.2-10.6)
[2024-05-23] MEDS: hydrOXYzine HCl 25 MG Tab PO PRN (01:32)
[2024-05-23 06:03] LABS: HEMATOCRIT 35.7 % (34.3-46.0); HEMOGLOBIN 11.7 g/dL (11.2-15.5); MEAN CORPUSCULAR HEMOGLOBIN 29.9 pg (31.6-35.5); MEAN CORPUSCULAR HGB CONC 32.8 g/dL (31.6-35.5); MEAN CORPUSCULAR VOLUME 91.3 fL (81.4-99.0); RED BLOOD CELL COUNT 3.91 M/uL (3.77-5.24); WHITE BLOOD CELL COUNT,WBC 9.5 K/uL (3.2-11.0)
[2024-05-23 06:19] LABS: CALCIUM 9.1 mg/dL (8.5-10.1); CREATININE 0.8 mg/dL (0.6-1.0); EST CRCL DRUG DOSING (CG) 38.94 mL/min; POTASSIUM,K 4.5 mmol/L (3.6-5.2)
[2024-05-23 06:22] LABS: ANION GAP 7.5 mmol/L (5.0-14.0)
[2024-05-23 06:25] LABS: INR 1.3; PROTHROMBIN TIME 13.1 sec (9.2-10.6)
[2024-05-23] MEDS ORDERED: Propofol 200 MG/20 ML SDV ONE (07:25)
[2024-05-23] MEDS ORDERED: Midazolam 1 MG/ML 2 ML SDV ONE ×2 (07:25→08:31)
[2024-05-23] MEDS ORDERED: fentaNYL 100 MCG/2 ML SDV ONE (07:25)
[2024-05-23] MEDS: ceFAZolin 2 GM in Premix Bag 1 BAG IV ONE (08:30)
[2024-05-23] MEDS ORDERED: Phenylephrine 1% 10 MG/ML SDV ONE (09:01)
[2024-05-23] MEDS: Ketorolac 15 MG/ML SDV IVPUSH ONE (13:50)
[2024-05-23] MEDS: Haloperidol Lactate 5 MG/ML SDV IVPUSH PRN (13:50)
[2024-05-23] MEDS: Dextrose 5%-0.9% NaCl 1,000 ML IV SCH (13:56)
[2024-05-23] MEDS: Methotrexate 2.5 MG Tab PO SCH (20:24)
[2024-05-23] MEDS: HYDROmorphone 0.5 MG/0.5 ML Syringe IVPUSH PRN (22:12)
[2024-05-24] MEDS: Acetaminophen 1,000 MG in Premix Bag 1 BAG IV ONE ×2 (03:09→15:18)
[2024-05-24 05:41] LABS: HEMATOCRIT 33.7 % (34.3-46.0); HEMOGLOBIN 10.7 g/dL (11.2-15.5); MEAN CORPUSCULAR HEMOGLOBIN 29.7 pg (31.6-35.5); MEAN CORPUSCULAR HGB CONC 31.8 g/dL (31.6-35.5); MEAN CORPUSCULAR VOLUME 93.6 fL (81.4-99.0); RED BLOOD CELL COUNT 3.6 M/uL (3.77-5.24); WHITE BLOOD CELL COUNT,WBC 11.3 K/uL (3.2-11.0)
[2024-05-24 05:54] LABS: CALCIUM 9.4 mg/dL (8.5-10.1); CREATININE 0.7 mg/dL (0.6-1.0); EST CRCL DRUG DOSING (CG) 44.51 mL/min; INR 1.2; POTASSIUM,K 5.6 mmol/L (3.6-5.2); PROTHROMBIN TIME 12.4 sec (9.2-10.6)
[2024-05-24 06:07] LABS: ANION GAP 11.6 mmol/L (5.0-14.0)
[2024-05-24] MEDS ORDERED: Fluticasone NASAL Spray 16 GM Bottle NASBOTH PRN (08:57)
[2024-05-24] MEDS: Sodium Chloride 0.9% 1,000 ML IV SCH (11:25)
[2024-05-24] MEDS: Ketorolac 15 MG/ML SDV IVPUSH PRN (11:25)
[2024-05-24] MEDS: Dextrose 5%-0.9% NaCl 1,000 ML IV SCH (18:06)
[2024-05-24] MEDS: traMADol 50 MG Tab PO PRN (20:00)
[2024-05-24] MEDS: Enoxaparin 40 MG/0.4 ML Syringe SUBCUT SCH (20:00)
[2024-05-24] MEDS: Melatonin 3 MG Tab PO PRN (20:00)
[2024-05-25 05:36] LABS: HEMATOCRIT 31.8 % (34.3-46.0); HEMOGLOBIN 10.3 g/dL (11.2-15.5); MEAN CORPUSCULAR HEMOGLOBIN 29.9 pg (31.6-35.5); MEAN CORPUSCULAR HGB CONC 32.4 g/dL (31.6-35.5); MEAN CORPUSCULAR VOLUME 92.2 fL (81.4-99.0); RED BLOOD CELL COUNT 3.45 M/uL (3.77-5.24); WHITE BLOOD CELL COUNT,WBC 7.4 K/uL (3.2-11.0)
[2024-05-25 05:54] LABS: CALCIUM 9.4 mg/dL (8.5-10.1); CREATININE 0.8 mg/dL (0.6-1.0); EST CRCL DRUG DOSING (CG) 38.94 mL/min; POTASSIUM,K 4.4 mmol/L (3.6-5.2)
[2024-05-25 06:09] LABS: ANION GAP 10.4 mmol/L (5.0-14.0)
[2024-05-25] MEDS ORDERED: Non-Formulary Medication 1 Each (Dulaglutide [Trulicity] 1.5 MG/0.5 ML Pen) SQ SCH (09:00)
[2024-05-25] MEDS: Divalproex Sodium Delayed-Release 125 MG Cap.Sprink PO SCH (10:25)
[2024-05-25] MEDS: Warfarin 5 MG Tab PO ONE (16:42)
[2024-05-25] MEDS: tiZANidine 2 MG Tab PO PRN (18:29)
[2024-05-25] MEDS: ALPRAZolam 0.25 MG Tab PO PRN (19:47)
[2024-05-25] MEDS: Divalproex Sodium Delayed-Release 250 MG Tab.CR PO ONE (21:25)
[2024-05-25] MEDS: Melatonin 3 MG Tab PO SCH (21:28)
[2024-05-26 04:58] LABS: HEMATOCRIT 29.8 % (34.3-46.0); HEMOGLOBIN 9.9 g/dL (11.2-15.5); MEAN CORPUSCULAR HEMOGLOBIN 29.9 pg (31.6-35.5); MEAN CORPUSCULAR HGB CONC 33.2 g/dL (31.6-35.5); RED BLOOD CELL COUNT 3.31 M/uL (3.77-5.24); WHITE BLOOD CELL COUNT,WBC 7.7 K/uL (3.2-11.0)
[2024-05-26 05:17] LABS: ANION GAP 10.7 mmol/L (5.0-14.0); CALCIUM 8.8 mg/dL (8.5-10.1); CREATININE 0.7 mg/dL (0.6-1.0); EST CRCL DRUG DOSING (CG) 44.51 mL/min; INR 1.4; POTASSIUM,K 3.7 mmol/L (3.6-5.2); PROTHROMBIN TIME 14.5 sec (9.2-10.6)
[2024-05-26] MEDS: Warfarin 5 MG Tab PO SCH (13:25)
[2024-05-27 05:10] LABS: CALCIUM 8.7 mg/dL (8.5-10.1); CREATININE 0.6 mg/dL (0.6-1.0); EST CRCL DRUG DOSING (CG) 51.92 mL/min; POTASSIUM,K 4.5 mmol/L (3.6-5.2)
[2024-05-27 05:12] LABS: INR 3.7; PROTHROMBIN TIME 35.3 sec (9.2-10.6)
[2024-05-27 05:15] LABS: ANION GAP 11.5 mmol/L (5.0-14.0)
[2024-05-28 05:37] LABS: CALCIUM 8.7 mg/dL (8.5-10.1); CREATININE 0.6 mg/dL (0.6-1.0); EST CRCL DRUG DOSING (CG) 51.92 mL/min
[2024-05-28 05:50] LABS: INR 3.8; PROTHROMBIN TIME 36.8 sec (9.2-10.6)
[2024-05-28] MEDS: Insulin Glargine,Human Rec. Analog 100 Units/ML 3 ML Pen SUBCUT SCH (21:29)
[2024-05-29 05:44] VITALS: BP 163/71; PULSE 84
[2024-05-29 05:57] LABS: INR 2.9; PROTHROMBIN TIME 28.1 sec (9.2-10.6)
[2024-05-29] MEDS: Insulin Glargine,Human Rec. Analog 100 Units/ML 3 ML Pen SUBCUT SCH (09:00)
[2024-05-29] MEDS ORDERED: Warfarin 2.5 MG Tab PO SCH (13:00)
== END 2024-05-29 10:58 | DRG 481 ==
LOC: JP.ED 13:53 → JP.MS 17:51
PROVIDERS: ADMIT Internal Medicine; ATTEND Specialist
PROC: 0QSB04Z Reposition Right Lower Femur with Internal Fixation Device, Open Approach (ICD-10-PCS; principal; 2024-05-23 08:42)
DX: S72.401A Unspecified fracture of lower end of right femur, initial encounter for closed fracture (principal); I10 Essential (primary) hypertension; F05 Delirium due to known physiological condition; M97.11XA Periprosthetic fracture around internal prosthetic right knee joint, initial encounter; I48.91 Unspecified atrial fibrillation; I50.32 Chronic diastolic (congestive) heart failure; I48.20 Chronic atrial fibrillation, unspecified; Z66 Do not resuscitate; E11.9 Type 2 diabetes mellitus without complications; E78.00 Pure hypercholesterolemia, unspecified; J44.9 Chronic obstructive pulmonary disease, unspecified; K21.9 Gastro-esophageal reflux disease without esophagitis; M81.0 Age-related osteoporosis without current pathological fracture; M06.9 Rheumatoid arthritis, unspecified; W06.XXXA Fall from bed, initial encounter; F41.9 Anxiety disorder, unspecified; F32.A Depression, unspecified; E83.52 Hypercalcemia; I11.0 Hypertensive heart disease with heart failure; W19.XXXA Unspecified fall, initial encounter; Z88.8 Allergy status to other drugs, medicaments and biological substances; Z88.2 Allergy status to sulfonamides; Z79.82 Long term (current) use of aspirin; Z79.01 Long term (current) use of anticoagulants; Z79.4 Long term (current) use of insulin; Z79.84 Long term (current) use of oral hypoglycemic drugs; Z79.899 Other long term (current) drug therapy; Z86.73 Personal history of transient ischemic attack (TIA), and cerebral infarction without residual deficits; Z98.49 Cataract extraction status, unspecified eye; Z98.890 Other specified postprocedural states
CPT/HCPCS: 36415; 73700 ×2; 76377; 80048; 85025; 96374; 96375; 99284; 99285; J1170; J2405; 01360-QZ; 70450; 76000; 82947; 84132; 85018; 85027; 85610; 97110-GP; 97161-GP; 99222; 99232; 99233; 99238; A9270-GY; C1713; J0131; J0690; J1630; J1650; J1815; J1815-GY; J1885; J2250; J2371; J2704; J3010; J3430; J3490; J7030

== ENCOUNTER 2025-05-29 03:22 | Emergency (ER) | payer MEDICARE, OTHER ==
[2025-05-29 04:12] LABS: BASOPHILS ABSOLUTE AUTO 0.09 K/uL (0.00-0.10); BASOPHILS PERCENT AUTO 1.0 % (0.1-1.3); EOSINOPHILS ABSOLUTE AUTO 0.37 K/uL (0.00-0.40); EOSINOPHILS PERCENT AUTO 4.2 % (0.0-5.4); IMMATURE GRAN PERCENT AUTO 0.2 % (0.0-0.7); LYMPHOCYTES ABSOLUTE AUTO 1.07 K/uL (0.8-3.3); LYMPHOCYTES PERCENT AUTO 12.2 % (11.4-47.7); MONOCYTES ABSOLUTE AUTO 1.10 K/uL (0.20-0.90); MONOCYTES PERCENT AUTO 12.5 % (3.3-12.6); NEUTROPHILS ABSOLUTE AUTO 6.15 K/uL (1.0-7.6); NEUTROPHILS PERCENT AUTO 69.9 % (40.0-78.1); PLATELET COUNT,PLT 321 K/uL (130-375); RED BLOOD CELL COUNT 3.21 M/uL (3.77-5.24); WHITE BLOOD CELL COUNT,WBC 8.8 K/uL (3.2-11.0)
[2025-05-29 04:13] LABS: IMMATURE GRAN ABSOLUTE AUTO 0.02 K/uL (0.00-0.23)
[2025-05-29 04:23] LABS: INR 2.2
[2025-05-29 04:25] LABS: BLOOD UREA NITROGEN,BUN 21.0 mg/dL (7-18); CARBON DIOXIDE,CO2 32.0 mmol/L (21-32); CHLORIDE,CL 104.0 mmol/L (100-108); CREATININE 0.8 mg/dL (0.6-1.0); EST CRCL DRUG DOSING (CG) 38.27 mL/min; ESTIMATED GFR 73.0 mL/min (>60); GLUCOSE RANDOM 78.0 mg/dL (74-106); POTASSIUM,K 4.1 mmol/L (3.6-5.2); SODIUM,NA 140.0 mmol/L (140-148)
[2025-05-29 06:20] VITALS: BP 169/67; PULSE 84
== END 2025-05-29 07:03 ==
LOC: JP.ED 03:22
DX: S51.811A Laceration without foreign body of right forearm, initial encounter (principal); S00.03XA Contusion of scalp, initial encounter; I10 Essential (primary) hypertension; I48.91 Unspecified atrial fibrillation; E78.00 Pure hypercholesterolemia, unspecified; J44.9 Chronic obstructive pulmonary disease, unspecified; K21.9 Gastro-esophageal reflux disease without esophagitis; E11.9 Type 2 diabetes mellitus without complications; Z86.73 Personal history of transient ischemic attack (TIA), and cerebral infarction without residual deficits; Z79.899 Other long term (current) drug therapy; Z79.82 Long term (current) use of aspirin; Z79.01 Long term (current) use of anticoagulants; Z79.4 Long term (current) use of insulin; Z88.2 Allergy status to sulfonamides; Z88.8 Allergy status to other drugs, medicaments and biological substances; Z91.048 Other nonmedicinal substance allergy status; W08.XXXA Fall from other furniture, initial encounter
CPT/HCPCS: 36415; 70450; 72125; 73110-RT; 73562-RT; 76377; 80048; 85025; 85610; 99283; 99285